=== PATIENT | male | born 2000 | race Caucasian/White ===

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

== ENCOUNTER → 2022-04-01 | Outpatient (CLI) | payer BC ==
[2022-04-01 11:37] LABS: HEMATOCRIT 46.7 % (42.0-52.0); MEAN CELL VOLUME 85.7 fl (80.0-94.0); MEAN CORPUSCULAR HGB 28.1 pg (27.0-31.0); MEAN CORPUSCULAR HGB CONC 32.8 g/dl (33.0-37.0); MEAN PLATELET VOLUME 10.4 fl (9.6-12.3); RED BLOOD COUNT 5.45 10*6/uL (4.50-5.90); RED CELL DISTRI WIDTH 13.2 % (0-14.5); WHITE BLOOD COUNT 9.3 10*3/uL (4.8-10.8)
[2022-04-01 11:54] LABS: ALKALINE PHOSPHATASE 89 U/L (46-116); BUN 11 mg/dl (9-23); CHLORIDE 108 mmol/L (98-107); POTASSIUM 4.4 mmol/L (3.4-5.1); SGPT/ALT 35 U/L (10-49); TOTAL PROTEIN 6.8 gm/dL (6.0-8.0)
== END | disposition home or self-care (01) ==
LOC: LAB 10:52
PROVIDERS: ATTEND Family Medicine
DX: R11.0 Nausea (principal); R51.9 Headache, unspecified; Z77.098 Contact with and (suspected) exposure to other hazardous, chiefly nonmedicinal, chemicals

== ENCOUNTER → 2022-12-22 | Outpatient (CLI) | payer BC, MEDICAID | END | disposition home or self-care (01) | LOC: CT 09:00 | PROVIDERS: ATTEND Family Medicine | DX: G89.29 Other chronic pain (principal); R51.9 Headache, unspecified ==

== ENCOUNTER → 2023-07-27 | Outpatient (CLI) | payer BC, OTHER ==
[2023-07-27 14:18] LABS: HEMATOCRIT 45.6 % (42.0-52.0); MEAN CELL VOLUME 86.2 fl (80.0-94.0); MEAN CORPUSCULAR HGB 30.1 pg (27.0-31.0); MEAN CORPUSCULAR HGB CONC 34.9 g/dl (33.0-37.0); RED BLOOD COUNT 5.29 10*6/uL (4.50-5.90); RED CELL DISTRI WIDTH 12.9 % (0-14.5); WHITE BLOOD COUNT 11.9 10*3/uL (4.8-10.8)
[2023-07-27 14:53] LABS: ALKALINE PHOSPHATASE 110 U/L (46-116); BUN 12 mg/dl (9-23); CHLORIDE 107 mmol/L (98-107); CHOLESTEROL 139 mg/dL (<200); FREE T4 1.55 ng/dl (0.89-1.76); LDL CHOLESTEROL 75 mg/dL (9-159); SGPT/ALT 37 U/L (5-49); TOTAL PROTEIN 7.1 gm/dL (6.0-8.0); TRIGLYCERIDES 124 mg/dl (<150)
== END ==
LOC: LAB 13:57
PROVIDERS: ATTEND Family Medicine
DX: E78.00 Pure hypercholesterolemia, unspecified (principal); R53.83 Other fatigue; R04.0 Epistaxis; A15.9 Respiratory tuberculosis unspecified

== ENCOUNTER → 2023-12-09 | Outpatient (CLI) | payer BC, OTHER ==
[2023-12-09 10:53] LABS: MEAN PLATELET VOLUME 9.8 fl (9.6-12.3); RED BLOOD COUNT 5.34 10*6/uL (4.50-5.90); RED CELL DISTRI WIDTH 12.9 % (0-14.5); WHITE BLOOD COUNT 11.5 10*3/uL (4.8-10.8)
== END | disposition home or self-care (01) ==
LOC: LAB 10:38
PROVIDERS: ATTEND Family Medicine
DX: D72.829 Elevated white blood cell count, unspecified (principal)